=== PATIENT | male | born 1965 | race Two or more races ===

== ENCOUNTER → 2020-09-29 15:30 | Outpatient (BNVA) | payer MEDICAID, SELFPAY | PROVIDERS: PCP Internal Medicine; Visit Provider Internal Medicine Cardiovascular Disease ==

== ENCOUNTER → 2020-10-01 14:53 | Outpatient (BNVA) | payer MEDICAID, SELFPAY | PROVIDERS: PCP Internal Medicine; Visit Provider Internal Medicine Cardiovascular Disease | DX: I25.10 Atherosclerotic heart disease of native coronary artery without angina pectoris (principal); E78.5 Hyperlipidemia, unspecified | CPT/HCPCS: 93005; 99212 ==

== ENCOUNTER 2021-01-29 16:01 | Outpatient (REF) | payer MEDICAID, SELFPAY | END 2021-01-29 16:02 | disposition home or self-care (01) | LOC: HO.LAB 16:01 | PROVIDERS: PCP Internal Medicine; Visit Provider Internal Medicine | DX: Z20.822 Contact with and (suspected) exposure to COVID-19 (principal) | CPT/HCPCS: U0003; U0005 ==

== ENCOUNTER 2023-04-11 14:37 | Outpatient (AMB) | payer MEDICAID, SELFPAY ==
--- NOTE | 2023-04-11 14:52 | MHC.OFFVIS ---
Intake Vital Signs 04/11/23 14:54 Height 5 ft 9 in Weight 144 lb 2.917 oz BMI 21.3 BP 148/76 H Blood Pressure Location Lt brachial Position Sitting Pulse 103 H Pulse Source Pulse Oximeter Pulse Oximetry (%) 96 Oxygen Delivery Method Room Air Intake Visit Reasons: OVERDUE FOLLOW UP ([facility] PT) Intake Note: PT has some questions about his prescriptions and stents. Allergies escitalopram [From LEXAPRO] Allergy (Mild, Unverified 04/11/23 14:55) UNKNOWN Medication List - Last Reconciled 04/11/23 by Lilly Thomson NP-C aspirin 81 mg PO DAILY atorvastatin 80 mg PO BEDTIME 90 days budesonide-formoterol 80-4.5 mcg/actuation (Symbicort) 2 puffs inhalation BID carvedilol 3.125 mg PO BID folic acid 1 mg PO DAILY lisinopril 5 mg PO DAILY 90 days multivitamin 1 tab PO DAILY thiamine HCl (vitamin B1) 100 mg PO DAILY HPI OVERDUE FOLLOW UP ([facility] PT) HPI Details Yeison is a 57-year-old male with past medical history of hyperlipidemia, smoking, anterior STEMI with LAD stent who presents for follow-up. His last prior visit to cardiology was 10/01/2020. Today he reports that he has physically been doing well since his last visit. He has not had any hospitalizations or ER trips. He tells me he was living in [place] for a while and then became homeless. He is now back in this area and trying to reestablish his healthcare. He denies any chest discomfort at rest or with activity. No shortness of breath, palpitations, dizziness, presyncope, syncope, PND, orthopnea or edema. He has been taking his medications as directed even during his time of homelessness. He says he walks routinely and rides his bike. He continues to smoke a half a pack of cigarettes per day. He has not had any recent lab work. [facility] Medical History Hyperlipidemia Old anterior myocardial infarction Smoking hx Surgical History (Updated 04/11/23 @ 17:26 by HEATHER CarterC) Stented coronary artery Family History (Updated 10/01/20 @ 15:05 by RAJ Syed) Mother CHF (congestive heart failure) Diabetes Father Heart attack Social History (Updated 04/11/23 @ 14:59 by Leidy Nunez [facility]) Alcohol intake: current Patient Tobacco Use Status: Current everyday Tobacco user Cigarettes Per Day: 10 Review of Systems Const All systems reviewed & are unremarkable except as noted in HPI and below Physical Exam Vital Signs: Last Vital Signs Pulse 103 H 04/11/23 14:54 BP 148/76 H 04/11/23 14:54 Pulse Ox 96 04/11/23 14:54 Oxygen Delivery Method Room Air 04/11/23 14:54 BMI result Body Mass Index 21.3 Const General: cooperative, healthy appearing, comfortable and no acute distress Orientation/consciousness: patient oriented x3 Neck Neck: Yes normal visual inspection Resp Effort & Inspection: normal respiratory effort Auscultation: clear to auscultation bilaterally, no crackles, no rales, no rhonchi and no wheezes Cardio Jugular venous distension: no JVD Rate: regular rate Rhythm: regular rhythm Heart sounds: S1 normal heart sound present, S2 normal heart sound present, no murmurs and no rubs Neuro General: patient oriented x3 Extrem General: Yes normal to inspection, No no pedal edema and No calf tenderness Psych Appearance: grossly normal Mental Status: mental status grossly normal Speech and movement: Normal speech and movement present Office Procedures EKG Details: Today, read by me, normal sinus rhythm, anterior infarct, unchanged from prior EKG, rate 98 [id number], Complete Assessment & Plan Assessment & Plan (1) Coronary artery disease: Comment: Stable Code(s): I25.10 - Atherosclerotic heart disease of [place] coronary artery without angina pectoris Plan: Known history of CAD with prior STEMI, PCI to the LAD approximally 2018. Last prior visit to our office to 05/2021. Had moved out of the area and was homeless. Now reestablishing his care. He denies any cardiac symptoms at present but continues to smoke. He reports med compliance. EKG done today showing sinus rhythm with anterior Q-waves consistent with prior MO, no change from prior EKG, rate 98. Will update echocardiogram to ensure EF and wall motion are normal. Will continue aspirin indefinitely. Continue atorvastatin high-dose with LDL goal less than 70. Continue carvedilol and lisinopril. He has been on Brilinta since this time of his STEMI so will stop Brilinta at this time. Will update labs including CMP and lipids. Smoking cessation encouraged. Cardiology follow-up in 2-3 months to go over test results and make med adjustments as needed, sooner if needed (2) Old anterior myocardial infarction: Code(s): I25.2 - Old myocardial infarction (3) Stented coronary artery: Comment: LAD Code(s): Z95.5 - Presence of coronary angioplasty implant and graft Plan: Will work on obtaining cardiac catheterization records from [facility] [place] (4) Hyperlipidemia: Comment: Stable Code(s): E78.5 - Hyperlipidemia, unspecified Plan: As above (5) Smoking hx: Code(s): Z87.891 - Personal history of nicotine dependence Orders: Orders Comprehensive Cunningham. Panel Fast Today I25.10 - Atherosclerotic heart disease of [place] coronary artery without angina pectoris Lipid Panel Today I25.10 - Atherosclerotic heart disease of [place] coronary artery without angina pectoris CA echo transthoracic complete Today I25.10 - Atherosclerotic heart disease of [place] coronary artery without angina pectoris Medications: Discontinued ticagrelor (Brilinta) Must call and schedule a follow-up with cardiology for refills Discontinued Reason: Doctor's Order 90 mg PO BID 90 days 180 tabs 0RF Coding Level of Care Code Est Pt Level 4 (97051) Diagnoses Coronary artery disease I25.10 Old anterior myocardial infarction I25.2 Stented coronary artery Z95.5 Hyperlipidemia E78.5 Smoking hx Z87.891 CPT Codes EKG - CPT: 15922-[id number], Complete ([id number]) Time Spent (min) 26 Comment Chart review, documentation, interview, assess
[2023-04-11 14:54] VITALS: BP 148/76; PULSE 103; O2SAT 96; BMI 21.3
== END 2023-04-11 15:21 | disposition home or self-care (01) ==
PROVIDERS: PCP Nurse Practitioner Family; Referring Provider Nurse Practitioner Family; Visit Provider Nurse Practitioner Family
DX: I25.10 Atherosclerotic heart disease of native coronary artery without angina pectoris (principal); I25.2 Old myocardial infarction; Z95.5 Presence of coronary angioplasty implant and graft; E78.5 Hyperlipidemia, unspecified; Z87.891 Personal history of nicotine dependence
CPT/HCPCS: 93010; 99214

== ENCOUNTER → 2023-04-11 14:37 | Outpatient (BNVA) | payer MEDICAID, SELFPAY | PROVIDERS: PCP Nurse Practitioner Family; Referring Provider Nurse Practitioner Family; Visit Provider Nurse Practitioner Family | DX: I25.10 Atherosclerotic heart disease of native coronary artery without angina pectoris (principal); I25.2 Old myocardial infarction; I10 Essential (primary) hypertension; E78.5 Hyperlipidemia, unspecified; F17.210 Nicotine dependence, cigarettes, uncomplicated; Z95.5 Presence of coronary angioplasty implant and graft | CPT/HCPCS: 93005; 99212 ==

== ENCOUNTER → 2023-05-11 13:54 | Outpatient (REF) | payer OTHER, SELFPAY ==
--- NOTE | 2023-05-11 13:57 | CA_ITS ---
Transthoracic Echocardiogram Patient (Last, First, Middle): Yeison Jade, Gender: Male Date of : 1965 Age: 57 Procedure Date: 05/11/2023 Procedure Type: Transthoracic Echocardiogram Location: OP Height: 175.26 cm Weight: 65.77 kg BSA: 1.80 m2 Heart Rate: bpm BP: 120 / 75 mmHg Private Wealth Advisor: MARIA LUZ Referring MD: Lilly Thomson [employer] WATER INSTALLERGreyson Symptoms: I25.10 - Atherosclerotic heart disease of [place] coronary artery without... Study Quality: Fair ECG Rhythm: Sinus Conclusions: - The left ventricular systolic function is normal. The calculated ejection fraction is 66% by biplane method. - Mild hypokinesis in the distal anterior septum - No obvious valvular pathology seen on this study. Findings Left Ventricle Normal left ventricular cavity size. There is normal left ventricular wall thickness. The left ventricular systolic function is normal. The calculated ejection fraction is 66% by biplane method. Diastolic function is normal for age. Mild hypokinesis in the distal anterior septum Right Ventricle Normal right ventricular cavity size and systolic function. Atria Both atria are normal in size. Aortic Valve There is a normal trileaflet aortic valve. There is no aortic valve stenosis. There is no aortic valve regurgitation. Mitral Valve The mitral valve appears normal. There is no mitral valve regurgitation. There is no mitral valve stenosis. Pulmonic Valve The pulmonic valve is likely normal. Tricuspid Valve Normal tricuspid valve structure. There is mild tricuspid valve regurgitation. There is no evidence of pulmonary hypertension. Great Vessels The asc aorta is normal in size. Venous The inferior vena cava is mildly dilated and collapses greater than 50% with inspiration. Pericardium/Pleural There is no evidence of pericardial effusion. Prior Study Comparison No significant change compared to prior study dated: 12/22/2018. Wall motion abnormality not described in prior study but could be technical. Recommendations, Care & Conclusions No obvious valvular pathology seen on this study. Measurements 2D Linear Measurements IVSd: 0.77 0.6-0.9/0.6-1.0 cm LVIDd: 4.62 3.9-5.3/4.2-5.9 cm LVIDd Index: 2.57 2.4-3.2/2.2-3.1 cm/m2 LVIDs: 2.84 2.0-3.6 cm LVPWd: 0.93 0.7-1.1 cm LA Diam: 2.20 2.7-3.8/3.0-4.0 cm LAIDs Index: 1.22 1.5-2.3 cm/m2 LV Mass: 159.98 67-162/88-224 g LV Mass Index: 88.88 43-95/49-115 g/m2 LVOT Diam: 2.10 3.0+(-)1.3 cm 2D Systolic Function EF 4C: 66.50 >55% EF 2C: 66.40 >55% EF BiP: 66.40 >55% Mitral Valve MV Pk E: 0.85 MV PK A: 0.58 MV Decel Time: 192.00 E/A: 1.50 E'Lateral: 10.10 E'Medial: 8.05 E/E' Med: 10.60 E/E' Lat: 8.50 PHT: 56.00 MVA PHT: 3.93 Decel [place]: 4.44 Aortic Valve AoV Pk Azam: 1.05 AoV Mn Azam: 0.77 AoV VTI: 0.27 AoV Pk Grad: 4.00 Aov Mn Grad: 3.00 DRU Cont.VTI: 2.38 LVOT LVOT Pk Azam: 0.89 LVOT Mn Azam: 0.56 LVOT VTI: 0.18 LVOT Pk Grad: 3.00 LVOT Mn Grad: 1.00 LVOT Diam: 2.10 LVOT Area: 3.46 Diastolic Function MV Pk E: 0.85 MV Pk A: 0.58 E/A: 1.50 E'Medial: 8.05 E/E' Med: 10.60 E' Laterial: 10.10 E/E' Lat: 8.50 Right Ventricle TAPSE (mm): 25.40 TVS' Azam: 12.70 Tricuspid Valve TR Pk Azam: 2.51 TR Pk Grad: 25.00 RA Press: 8.00 RVSP: 33.00 Great Vessels Aorta Sinus of Valsalva: 3.24 2.0-3.[address] [place]: 2.77 1.7-3.4 cm Ao Asc: 3.40 2.1-3.4 cm Updated in Other Vendor System with Status of Final Scott Forbes MD electronically signed on 05/11/2023 4:30:46 PM with status of Final
== END ==
LOC: HO.CARD 13:54
PROVIDERS: Visit Provider Nurse Practitioner Family
DX: I25.10 Atherosclerotic heart disease of native coronary artery without angina pectoris (principal)
CPT/HCPCS: 93306

== ENCOUNTER → 2023-05-11 13:57 | Outpatient (BNV) | payer OTHER, SELFPAY | PROVIDERS: Visit Provider Internal Medicine | DX: I25.10 Atherosclerotic heart disease of native coronary artery without angina pectoris (principal); I36.1 Nonrheumatic tricuspid (valve) insufficiency | CPT/HCPCS: 93306 ==